=== PATIENT | male | born 1965 | race Caucasian/White ===

== ENCOUNTER → 2017-01-21 | Day surgery (SDC) | payer BC ==
[2017-01-21] VITALS (8 sets, daily range): BP systolic 114–140; BP diastolic 70–85
[~2017-01-21] VITALS: Ht 185.4 cm; Wt 94.3 kg
[~2017-01-21] MED LIST: DiphenhydrAMINE 50mg/ml Inj IVP PRN; HYDROCHLOROTH12.5 M2 ORAL; LORATADINE10 M2 PO; LR 1000ml 1,000 ML IVLG SCH; Meperidine 25mg/ml Inj IV PRN; Midazolam 2mg/2ml Inj ONE; PROTONIX20 MG ORAL; Propofol 10mg/ml 20ml IV ONE; SERTRALINE HCL25 MG ORAL; WELLBUTRIN SR100 MG ORAL; fentaNYL 100 mcg/2 mL IV ONE
--- NOTE | 2017-01-21 07:08 | Short Stay Surgery H&P ---
History of Present Illness History of Present Illness Chief Complaint see typed H&P HPI Luis Sofiya Marlys is a 51 year old male who was admitted on for Gerd,Colon Screening Patient History Allergies: Coded Allergies: No Known Allergies (Unverified , 01/18/17) PAST MEDICAL HISTORY: Past Surgeries: Social History: Medication History Scheduled Bupropion Sr* (Wellbutrin Sr*), 100 MG ORAL DAILY, (Reported) Hydrochlorothiazide* (Hydrochlorothiazide*), Unknown Dose ORAL DAILY, (Reported) Loratadine (Loratadine), 10 MG PO DAILY, (Reported) Pantoprazole Sodium (Protonix), 20 MG ORAL DAILY, (Reported) Sertraline Hcl* (Sertraline Hcl*), 150 MG ORAL DAILY, (Reported) Physical Exam Vital Signs Last Vital Signs Date Time Temp Pulse Resp B/P Pulse Ox O2 Delivery O2 Flow Rate FiO2 01/21/17 06:29 98.6 75 18 126/83 95 Room Air Plan Attestation Are the patient's medical conditions optimized for surgery? RIKKI GRIER Jan 21, 2017 07:08
--- NOTE | 2017-01-21 07:20 | Pre-Procedure Note/Attestation ---
Pre-Procedure Note/Attestation Complete Prior to Procedure Planned Procedure: not applicable Procedure Narrative: EGD/Colon Indications for Procedure Pre-Operative Diagnosis: GERD, Scren Attestation I attest that I discussed the nature of the procedure; its benefits; risks and complications; and alternatives (and the risks and benefits of such alternatives ), prior to the procedure, with the patient (or the patient's legal ambulatory service representative). I attest that, if there was a reasonable possibility of needing a blood transfusion, the patient (or the patient's legal ambulatory service representative) was given the [facility] standardized written summary, pursuant to the Lamine Bamberg Blood Safety Act ([place] Health and Safety Code # 1645, as amended). I attest that I re-evaluated the patient just prior to the surgery and that there has been no change in the patient's H&P, except as documented below: RIKKI GRIER Jan 21, 2017 07:20
--- NOTE | 2017-01-21 07:26 | Anethesia Preoperative Eval ---
Anesthesia Pre-op PMH/ROS General Date of Evaluation: Jan 21, 2017 Time of Evaluation: 06:55 Anesthesiologist: Luis Alberto ASA Score: ASA 2 Mallampati Score Class I : Soft palate, uvula, fauces, pillars visible Class II: Soft palate, uvula, fauces visible Class III: Soft palate, base of uvula visible Class IV: Only hard plate visible Mallampati Classification: Class II Surgeon: Adiel Diagnosis: abdomial pain Surgical Procedure: EGD Colonscopy Anesthesia History: none Family History: no anesthesia problems Allergies: Coded Allergies: No Known Allergies (Unverified , 01/18/17) Medications: see eMAR Past Medical History Cardiovascular: Reports: HTN - mild, Denies: CAD, NV, arrhythmia, other, valve dz Pulmonary: Denies: COPD, ALEX, asthma, other Gastrointestinal/Genitourinary: Reports: GERD, Denies: CRI, ESRD, other Neurologic/Psychiatric: Denies: CVA, TIA, dementia, depression/anxiety, other Endocrine: Denies: DM, hypothyroidism, other, steroids HEENT: Denies: BENTON (L), [place] (R), cataract (L), cataract (R), glaucoma, other Hematology/Immune: Denies: DVT, anemia, bleeding disorder, other Musculoskeletal/Integumentary: Denies: DDD, DJD, OA, RA, edema, other PMH Narrative: a above PSxH Narrative: Appendectomy Anesthesia Pre-op Phys. Exam Physician Exam Last Vital Signs Date Time Temp Pulse Resp B/P Pulse Ox O2 Delivery O2 Flow Rate FiO2 01/21/17 06:29 98.6 75 18 126/83 95 Room Air Constitutional: NAD Neurologic: CN 2-12 intact Cardiovascular: RRR, no M/R/G Respiratory: CTA Gastrointestinal: S/NT/ND Airway Exam Mallampati Score: Class II MO: full Neck: flexible ROM: full Teeth: intact Dentures: no lower, no upper Anesthesia Pre-op A/P Risk Assessment & Plan Assessment: ASA 2 Plan: MAC Status Change Before Surgery: No Pre-Antibiotics Drug: none DEBI CONTRERAS M.D. Jan 21, 2017 07:26
--- NOTE | 2017-01-21 07:41 | Endoscopy Procedure Note ---
Endoscopy Procedure Note Indication for Procedure: GERD, screen Procedures Performed: EGD, colonoscopy Operative Findings/Diagnosis: undus polyp, HH, DAMIEN, tics Specimen: yes Pt Tolerated Procedure Well: Yes Estimated Blood Loss: none Anesthesia: MAC Medication Given: see anesthesia record Implant(s) used?: No 50 yrs or older w/o bx or poly: Yes 10yrs. F/U not recommended: Yes If not recommended, why?: 10 yrs. F/U needed: Yes 18 years or older w/prev. colo: No <3yrs. since last colonoscopy: No Med reason:<3 yrs.: System Reason:<3 yrs.: Last colonoscopy >= to 3yrs: Yes RIKKI GRIER Jan 21, 2017 07:41
--- NOTE | 2017-01-21 07:43 | Brief Operative Note ---
Immediate Post Operative Note Operative Note Chief Complaint: gerd, screen Pre-op Diagnosis: GERD, Scren Procedure: E/v, C Post-op Diagnosis: HH, DAMIEN, fundus polyp, tics Post-op Diagnosis: same as pre-op Surgeon: corey Anesthesia: MAC Specimen: yes Complications: none Condition: stable Estimated Blood Loss: none Drains: none Implant(s) used?: No RIKKI GRIER Jan 21, 2017 07:43
--- NOTE | 2017-01-21 07:52 | Immediate Post-Op Evaluation ---
Immediate Post-Op Evalulation Immediate Post-Op Evalulation Procedure: EGD Colonoscopy Date of Evaluation: Jan 21, 2017 Time of Evaluation: 07:50 IV Fluids: 500 Blood Products: none Estimated Blood Loss: none Urinary Output: none Blood Pressure Systolic: 114 Blood Pressure Diastolic: 79 Pulse Rate: 66 Respiratory Rate: 20 O2 Sat by Pulse Oximetry: 94 Temperature (Fahrenheit): 97.4 Pain Score (1-10): 1 Nausea: No Vomiting: No Complications none Patient Status: awake, patent, none Hydration Status: adequate DEBI CONTRERAS M.D. Jan 21, 2017 07:52
--- NOTE | 2017-01-21 08:51 | 48 Hour Post Anesthesia Eval ---
Post Anesthesia Evaluation Procedure: EGD Colonoscopy Date of Evaluation: Jan 21, 2017 Time of Evaluation: 08:49 Blood Pressure Systolic: 124 0: 56 Pulse Rate: 72 Respiratory Rate: 20 Temperature (Fahrenheit): 97.6 O2 Sat by Pulse Oximetry: 98 Airway: patent Nausea: No Vomiting: No Pain Intensity: 1 Hydration Status: adequate Cardiopulmonary Status: stable Mental Status/LOC: patient returned to baseline Follow-up Care/Observations: n/a Post-Anesthesia Complications: none Follow-up care needed: ready to discharge DEBI CONTRERAS M.D. Jan 21, 2017 08:50
--- NOTE | 2017-01-21 12:38 | Operative Note - Dictated ---
DATE OF OPERATION: 01/21/2017 NOTE: POOR AUDIO QUALITY GASTROLOGY PROCEDURE REPORT PROCEDURE: Upper gastroendoscopy with biopsy as well as colonoscopy. SURGEON: Karly Meza M.D. ANESTHESIA: Please see the separate anesthesiologist notes for details. PRE-ENDOSCOPIC DIAGNOSIS: . POST-ENDOSCOPIC DIAGNOSES: 1. gastric polyps in the fundus of the stomach, status post biopsy. 2. A 2 cm hiatal hernia. 3. Linear evulsion in the lower esophagus. 4. Gastroesophageal reflux, status post biopsy. 5. Incidental 145 cm esophageal . 6. Status post biopsy of the antrum and the gastroesophageal junction. 7. PROCEDURE PERFORMED: 1. Longstanding of gastroesophageal reflux disease. 2. Screening colonoscopy. DESCRIPTION OF PROCEDURE: The risks, indications, alternatives, and possible complications including, but not limited to, bleeding, infection, perforation, , and anesthesia complications were explained to the patient and informed consent was obtained. The patient was then sedated in the left lateral decubitus position. A diagnostic upper endoscope was introduced through the oropharynx and advanced to the duodenum without difficulty. The endoscope was then gradually withdrawn and the mucosa. Rectal examination was done and colonoscope was introduced in to the rectum and advanced to cecum. The cecum was identified by the appearance of the ileocecal valve. The colonoscope was then gradually withdrawn and the mucosa was examined. Retroflexion of the rectum was also done. The was removed. Findings were as reported above. RECOMMENDATIONS: 1. High-fiber diet. 2. Reflux precautions. 3. Follow up lab results. 4. Outpatient follow up. Thank you very much. Karly Meza M.D. DR: Dung JOB#: [id number] CC: Karly Meza M.D.; Fax#: [phone]
== END | disposition home or self-care (01) ==
LOC: GAS 05:53
DX: Z12.11 Encounter for screening for malignant neoplasm of colon (principal); K29.50 Unspecified chronic gastritis without bleeding; K44.9 Diaphragmatic hernia without obstruction or gangrene; K21.9 Gastro-esophageal reflux disease without esophagitis; K31.7 Polyp of stomach and duodenum; H81.10 Benign paroxysmal vertigo, unspecified ear; H93.19 Tinnitus, unspecified ear; H81.02 Meniere's disease, left ear; R03.0 Elevated blood-pressure reading, without diagnosis of hypertension; F41.9 Anxiety disorder, unspecified; Z90.49 Acquired absence of other specified parts of digestive tract
CPT/HCPCS: 43239; 45378; J2250; J2704; J3010; 94003; 94150